=== PATIENT | male | born 1975 | race Caucasian/White ===

== ENCOUNTER 2016-05-14 08:55 | Outpatient (CLI) | payer BC ==
[2016-05-14 12:38] LABS: #Basophils 0.1 thou/uL (0.0-0.2); #Eosinphils 0.3 thou/uL (0.0-0.7); #Lymphocytes 1.4 thou/uL (1.20-3.40); #Monocytes 0.6 thou/uL (0.11-0.59); #Neutrophils 2.1 thou/uL (1.40-6.50); %Basophils 1.9 % (0.0-1.0); %Eosinophils 6.4 % (0.0-10.0); %Lymphocytes 31.3 % (21.0-51.0); %Monocytes 12.6 % (0.0-10.0); Hematocrit 45.9 % (42.0-52.0); Red Blood Cell (RBC) Count 4.86 mill/uL (4.70-6.10); White Blood Cell (WBC) Count 4.4 thou/uL (4.8-10.8)
[2016-05-14 13:00] LABS: ALT (SGPT) 57 U/L (0-55); AST (SGOT) 33 U/L (5-34); Alkaline Phosphatase 50 U/L (40-150); Anion Gap 12 mmol/L (10-20); BUN (Urea Nitrogen) 19 mg/dL (8.9-20.6); Bilirubin, Total 1.6 mg/dL (0.2-1.2); Calc. Creatinine Clearance 0 mL/min (70-130); Calcium 9.6 mg/dL (7.8-10.44); Carbon Dioxide 29 mmol/L (22-29); Chloride 103 mmol/L (98-107); Estimated GFR-MDRD Greater than 90; Globulin 2.4 g/dL (2.4-3.5); LDL Cholesterol, Calculated 119 mg/dL; Protein, Total 7.1 g/dL (6.0-8.3)
[2016-05-14 13:14] LABS: Hemoglobin A1c 5.6 % (4.0-6.0)
[2016-05-14 13:42] LABS: Bilirubin Negative (Negative); Blood, Urine Negative (Negative); Glucose, Urine (Dipstick) Negative (Negative); Ketone, Urine Negative (Negative); Nitrite Negative (Negative); Protein, Urine (Dipstick) Trace mg/dL (Neg-Trace); Urobilinogen 0.2 mg/dL (0.2-1.0)
[2016-05-14 18:21] LABS: Microalbumin Urine Less than 1.0 mg/dL (0.5-50.0)
== END 2016-05-14 08:56 ==
LOC: NAVSJIPCSP 08:55
PROVIDERS: ATTEND Internal Medicine
DX: E78.5 Hyperlipidemia, unspecified (principal); I10 Essential (primary) hypertension; E10.9 Type 1 diabetes mellitus without complications
CPT/HCPCS: 36415; 80053; 80061; 81003; 82043; 82570; 83036; 84443; 85025

== ENCOUNTER 2016-08-13 09:06 | Outpatient (CLI) | payer BC ==
[2016-08-13 12:43] LABS: Hemoglobin A1c 5.4 % (4.0-6.0)
[2016-08-13 12:55] LABS: ALT (SGPT) 44 U/L (0-55); AST (SGOT) 27 U/L (5-34); Albumin 4.6 g/dL (3.5-5.0); Alkaline Phosphatase 51 U/L (40-150); Anion Gap 13 mmol/L (10-20); BUN (Urea Nitrogen) 21 mg/dL (8.9-20.6); Bilirubin, Total 1.9 mg/dL (0.2-1.2); Calc. Creatinine Clearance 0 mL/min (70-130); Calcium 9.6 mg/dL (7.8-10.44); Carbon Dioxide 28 mmol/L (22-29); Chloride 103 mmol/L (98-107); Estimated GFR-MDRD Greater than 90; Glucose 88 mg/dL (70-105); Potassium 3.9 mmol/L (3.5-5.1); Protein, Total 6.6 g/dL (6.0-8.3); Sodium 140 mmol/L (136-145)
[2016-08-13 18:27] LABS: Creatinine, Urine 98.48 mg/dL (63-166); Microalbumin Urine Less than 1.0 mg/dL (0.5-50.0); Microalbumin/Creat Ratio 10.2 mg/g (Less than 30)
== END 2016-08-13 09:07 | disposition home or self-care (01) ==
LOC: NAVSJIPCSP 09:06
PROVIDERS: ATTEND Internal Medicine
DX: E78.5 Hyperlipidemia, unspecified (principal); I10 Essential (primary) hypertension; E10.9 Type 1 diabetes mellitus without complications
CPT/HCPCS: 36415; 80053; 82043; 83036

== ENCOUNTER 2016-12-04 08:54 | Outpatient (CLI) | payer BC ==
[2016-12-04 13:00] LABS: Cardiac Risk 2.7 (Less than 4.5)
== END 2016-12-04 08:55 | disposition home or self-care (01) ==
LOC: NAVSJIPCSP 08:54
PROVIDERS: ATTEND Internal Medicine
DX: E78.00 Pure hypercholesterolemia, unspecified (principal)
CPT/HCPCS: 36415; 80061

== ENCOUNTER 2016-12-10 09:30 | Outpatient (CLI) | payer BC ==
[2016-12-11 17:52] LABS: Creatinine, Urine 40.21 mg/dL (63-166); Microalbumin Urine Less than 1.0 mg/dL (0.5-50.0); Microalbumin/Creat Ratio 24.9 mg/g (Less than 30)
== END 2016-12-10 09:31 | disposition home or self-care (01) ==
LOC: NAVSJIPCSP 09:31
PROVIDERS: ATTEND Internal Medicine
DX: E78.00 Pure hypercholesterolemia, unspecified (principal)
CPT/HCPCS: 82043

== ENCOUNTER 2017-02-16 16:02 | Outpatient (CLI) | payer BC ==
--- NOTE | 2017-02-17 07:50 | RAD ---
LEFT TOE 2 VIEWS: Date: 02/16/17 HISTORY: Left toe pain, injury to left fourth toe. FINDINGS/IMPRESSION: There is suggestion of a fracture involving the medial aspect of the base of the middle phalanx of t he fourth toe. POS: [facility]
== END 2017-02-16 16:03 | disposition home or self-care (01) ==
LOC: NAV RAD 16:02
PROVIDERS: ATTEND Internal Medicine
DX: M79.675 Pain in left toe(s) (principal)